=== PATIENT | male | born 1955 | race Caucasian/White ===

== ENCOUNTER 2017-07-29 12:32 | Emergency (ER) | payer OTHER ==
--- NOTE | 2017-07-29 13:40 | EDPHY ---
H & P Time Seen by Provider: 07/29/17 13:21 HPI/ROS: HPI Right hand infection. 62-year-old male by private vehicle with family member. This patient reports that he had some splinters in his right hand about a week ago. He reports that these were removed. He reports that yesterday and specifically last night he notice redness and swelling to the dorsal aspect of his hand. He reports that since that time he has developed red streaking up his arm and also feels discomfort in his right axilla. Denies fever. Denies shortness of breath. No history of traumatic injury. ROS: Constitutional: No fever, no chills. No weakness. Respiratory: No cough. No shortness of breath. Cardiac: No chest pain, no palpitations. Gastrointestinal: No abdominal pain, no vomiting, no diarrhea. Genitourinary: No hematuria. No dysuria or increased frequency with urination. Musculoskeletal: No back pain. No neck pain. No myalgias or arthralgias. Skin: As above. Neurological: No headache. No focal weakness or altered sensation. Past medical history: He denies any significant past medical history. He has a remote history of asthma. Social history: Nonsmoker. No alcohol. Here with family member. Physical Exam: General Appearance: Alert, no distress. This patient is responding to questions appropriately and in full sentences. This patient appears well- hydrated and well-nourished. Eyes: Pupils equal and round no pallor or injection. No lid edema, erythema or injection. Right upper extremity exam: Significant for a vague and faint puffiness dorsal aspect of the right hand with associated erythema and warmth. He then has lymphangitis ache streaking erythema up his forearm and arm and tender axillary lymphadenopathy. There is no significant asymmetric swelling and examining the right upper extremity where to the left upper extremity except for the swelling on the dorsal aspect of the right hand. The right upper extremity is otherwise neurovascularly intact. He has several scabbed well-healing wounds from prior splinters dorsal and ventral aspect of the right hand and digits. Neurological: Motor sensory function is grossly intact. Cranial nerves are normal. Gait is normal. Skin: Warm and dry, no rashes. Musculoskeletal: Neck is supple and nontender. Extremities are symmetrical. All joints range without pain or impingement. Psychiatric: No agitation. No depression. Database: EKG: Imaging: Procedures: Emergency department course: Triage vital signs reviewed and are within normal limits. He is currently afebrile. I discussed admission with him for IV antibiotics. He adamantly refuses this. We discussed alternative management plans. We will get blood cultures here and a CBC. He will be given 2 g of IV Ancef and then prescribed Keflex. He will then follow up in the emergency department tomorrow for recheck. The patient competently engages in shared decision making. They demonstrate capacitance to make decisions. In my professional opinion the patient understands the risks of declining admission for treatment of his right upper extremity cellulitis. The patient was given his IV Ancef without incident. He was discharged with a prescription for Keflex. He will follow up here in the emergency department tomorrow for recheck. He understands his follow-up. Return to emergency department precautions thoroughly discussed with him. All of his questions were answered. He was discharged from the emergency department in good condition with family member. Blood cultures and CBC obtained prior to antibiotic administration. Differential Diagnosis: The differential diagnosis on this patient includes but is not limited to non purulent right upper extremity cellulitis. DVT, right upper extremity traumatic injury unlikely. This represents a partial list of diagnoses considered. These considerations are based on history, physical exam, past history, reassessment and diagnostic testing. Constitutional: Initial Vital Signs Temperature (C) 37.2 C 07/29/17 13:18 Heart Rate 93 07/29/17 13:18 Respiratory Rate 16 07/29/17 13:18 Blood Pressure 139/93 H 07/29/17 13:18 O2 Sat (%) 96 07/29/17 13:18 O2 Delivery Mode Room Air Allergies/Adverse Reactions: No Known Allergies Allergy (Unverified 12/27/08 12:13) Home Medications: Medication Instructions Recorded Cephalexin [Keflex (*)] 500 mg PO Q6 10 Days cap 07/29/17 Medical Decision Making - Data Points Medications Given: Discontinued Medications Cefazolin Sodium 2 gm/ Sodium (Chloride) 100 mls @ 200 mls/hr IV EDNOW ONE PRN Reason: Protocol Stop: 07/29/17 14:12 Last Admin: 07/29/17 14:23 Dose: 100 mls Departure - Departure Disposition: Home, Routine, Self-Care Clinical Impression: Cellulitis of right upper extremity Condition: Good Instructions: Cellulitis (ED) Additional Instructions: Read and follow provided instructions. Follow-up with your primary care physician or return to the emergency department here tomorrow for recheck as discussed. It is very important you do this. Take antibiotic as prescribed through entire course of treatment. You have to take this medication 4 times daily and you must be disciplined about taking it as prescribed. Return to the emergency department immediately for worsening symptoms, fever, worsening pain or swelling or discoloration of your right arm or other serious concerns. Referrals: Ezequiel Romero MD [Primary Care Provider] - As per Instructions Prescriptions: Cephalexin [Keflex (*)] 500 mg PO Q6 10 Days cap
[2017-07-29] MEDS ORDERED: ceFAZolin 2 GM in NS 100 ML IV ONE (13:43)
[2017-07-29 14:45] LABS: PLATELET COUNT 204 10^3/uL (150-400)
[2017-07-29 15:18] VITALS: BP 128/90
== END 2017-07-29 14:53 | disposition home or self-care (01) ==
LOC: CED 12:32
DX: L03.113 Cellulitis of right upper limb (principal)
CPT/HCPCS: 96365; J0690